=== PATIENT | female | born 1970 | race Caucasian/White ===

== ENCOUNTER 2020-07-24 07:44 | Outpatient (CLI) | payer BC, SELFPAY ==
--- NOTE | ~2020-07-24 | MR_ITS ---
EXAMINATION: MR shoulder LT wo con DATE: 07/24/2020 08:43 INDICATION: Left shoulder pain TECHNIQUE: Magnetic resonance imaging (MRI) of the left shoulder was performed without intravenous co ntrast. Sequences included axial PD-weighted FS FSE, coronal oblique PD-weighted FS FSE, coronal obli que T2-weighted FS FSE, sagittal PD-weighted FS FSE, and sagittal T1-weighted SE. COMPARISON: Radiographs dated 05/10/2020 FINDINGS: Coracoacromial arch: The acromion undersurface is minimally curved in morphology (type I-II) with anterior downsloping. Th e coracoacromial ligament is normal. Minimal acromioclavicular osteoarthritis. Rotator cuff: The supraspinatus, infraspinatus and teres minor tendons are normal. The subscapularis tendon is norm al. Normal rotator cuff muscle bulk and signal. Biceps tendon, glenoid labrum and glenohumeral cartilage: Long head of the biceps tendon is normal. Tear at the 11:00-12:30 position of the superior glenoid la rose. Partial-thickness cartilage loss along the medial aspect of the humeral head and at the glenoid . This is most severe at the central glenoid where it approaches full-thickness with underlying marro w edema and developing mild cystic change. Fluid: Small amount of fluid in the long head biceps tendon sheath which is disproportionate to the physiolo gic amount fluid in the glenohumeral joint space consistent with mild bicipital tenosynovitis. No loo se osteochondral bodies. No abnormal fluid signal in the subacromial/subdeltoid bursa to suggest burs itis. Bones: Bone alignment is normal. No fracture or pathologic marrow replacing process. Mild cystic change at t he greater tuberosity. IMPRESSION: 1. Mild glenohumeral osteoarthritis with regional high-grade chondromalacia in the central glenoid. 2. Tear at the superior glenoid labrum. 3. Mild bicipital tenosynovitis. Reviewed, dictated and finalized at location B.
== END 2020-07-24 07:45 | disposition home or self-care (01) ==
PROVIDERS: PCP Internal Medicine; Visit Provider Nurse Practitioner Family
DX: M25.512 Pain in left shoulder (principal); M19.012 Primary osteoarthritis, left shoulder; S43.432A Superior glenoid labrum lesion of left shoulder, initial encounter; M75.22 Bicipital tendinitis, left shoulder
CPT/HCPCS: 73221

== ENCOUNTER 2021-08-26 05:30 | Emergency (ER) | payer OTHER, SELFPAY ==
--- NOTE | ~2021-08-26 | XR_ITS ---
XR chest 1V portable DATE: 08/26/2021 06:10 INDICATION: Cough, shortness of breath for 4 days. History of COPD. TECHNIQUE: Portable AP chest on 08/26/2021 at 0555 hours COMPARISON: None FINDINGS: Moderate bilateral hyperinflation. No pulmonary infiltrate or consolidation, pleural effusi on or pulmonary vascular congestion or pneumothorax. Heart size is within normal range. No hilar or mediastinal enlargement. IMPRESSION: No active disease Reviewed, dictated and finalized at location A. IMPRESSION: No active disease
[2021-08-26 05:35] VITALS: BP 136/77; PULSE 92; RESP 16; TEMP 36.7; O2SAT 96
[2021-08-26 05:37] VITALS: O2SAT 99
--- NOTE | 2021-08-26 05:43 | ECG_ITS ---
Measurements Intervals [place] Rate: 93 P: 76 OR: 151 QRS: 42 QRSD: 93 T: 49 QT: 342 QTc: 426 Interpretive Statements SINUS RHYTHM INCOMPLETE RIGHT BUNDLE BRANCH BLOCK BASELINE ARTIFACT- I, V3, V6 BORDERLINE ECG Electronically Signed On 08-26-2021 11:25:26 CDT by Rene Soni D.O.
--- NOTE | 2021-08-26 05:49 | ED.SOB ---
HPI - SOB/Dyspnea General Chief Complaint: Shortness of Breath/Dyspnea Stated Complaint: SOB Time Seen by Provider: 08/26/21 05:33 Source: RN notes reviewed History of Present Illness HPI Narrative: Patient presents emergency department from home for shortness of breath. Patient states symptoms began 2 days ago states that she has had progressive shortness of breath worse with exertion states associated with a cough this been productive of yellow sputum patient states she does have COPD and has been wheezing she denies any fevers or chills chest pain abdominal pain nausea vomiting or any other symptoms. States she did have the Covid vaccinations Related Data Home Medications Medication Instructions Recorded Confirmed diclofenac sodium PO 05/10/20 08/02/20 carbidopa 10 mg-levodopa 100 mg 1 tablet PO BID 07/16/20 08/02/20 tablet hydrochlorothiazide 12.5 mg tablet 12.5 mg PO DAILY 07/16/20 08/02/20 Allergies Allergy/AdvReac Type Severity Reaction Status Date / Time Penicillins Allergy Unknown Swelling Verified 08/26/21 05:48 of Lip/Tongue/Throat Review of Systems Review of Systems: Gen.: Denies fevers or chills ENT: Question Respiratory: See HPI CV: Denies chest pain or palpitations GI: Denies abdominal pain nausea, emesis or diarrhea Musculoskeletal: Denies back pain or muscle pain Neuro: Denies numbness, tingling, weakness or focal weakness Skin: Denies rash Except as documented, all other systems reviewed and negative [facility] Past Medical History Medical History Arthritis COPD (chronic obstructive pulmonary disease) DJD of left shoulder Headache Heart attack Hypertension Rotator cuff tendonitis Vision abnormalities Surgical History Surgical History History of appendectomy History of carpal tunnel release Family History Family History Other Arthritis Diabetes mellitus Heart disease Hypertension Malignant neoplasm Social History Social History Smoking status: Former smoker Alcohol intake: never Additional occupation/education comments: [employer] Ex[employer] Narrative: APPEARANCE: No acute distress, nontoxic, resting in bed EYES: EOMI HEENT: Normocephalic, atraumatic, OMM RESPIRATORY: No respiratory distress wheezing the bilateral upper lung wilcox no rhonchi CARDIOVASCULAR: Regular rate and rhythm without murmurs rubs or gallops. ABDOMINAL: Soft, nontender, nondistended, no rebound or guarding MUSCULOSKELETAl: Moves all extremities. No clubbing, cyanosis or edema. NEURO: Awake and alert. Following commands, speech normal, no focal deficits SKIN:: Warm, dry. No rashes lesions or abrasions PSYCHIATRIC: Normal affect/mood, Course Course Emergency Course: Patient given breathing treatment in ED states she is feeling much better this time repeat lung exam clear to auscultation bilaterally Discussed with patient results of workup and diagnosis. Discussed need for follow-up with primary care, proper use of medication, and reasons to return to the emergency department. Patient understands and agrees to current treatment plan patient states she does have an albuterol inhaler at home Vital Signs Vital signs: Vital Signs Temperature 98.1 F 08/26/21 05:35 Pulse Rate 92 08/26/21 05:35 Respiratory Rate 16 08/26/21 05:35 Pulse Oximetry 96 08/26/21 05:35 Temperature 98.1 F 08/26/21 05:35 Pulse Rate 82 08/26/21 06:06 Respiratory Rate 20 08/26/21 06:06 Pulse Oximetry 99 08/26/21 05:37 MDM - SOB/Dyspnea Lab Data Result diagrams: 08/26/21 05:53 08/26/21 05:53 Labs: Lab Results 08/26/21 08/26/21 Range/Units 05:53 05:53 WBC 7.1 (4.5-10.0) K/mm3 RBC 4.37 (4.2-5.4) M/mm3 Hgb 13.7 (12.0-15.0) g/dL
[2021-08-26] MEDS: methylPREDNISolone SOD SUCC 125 MG VIAL IV PUSH (05:54)
[2021-08-26] MEDS: ALBUTEROL SULFATE NEB 2.5 MG/0.5 ML INH 5 MG INHALATION (05:58)
[2021-08-26 05:59] LABS: Basophils Absolute Auto 0.1 K/mm3 (0.0-0.1); Basophils Percent Auto 0.7 % (0.2-1.2); Eosinophils Absolute Auto 0.3 K/mm3 (0-0.3); Eosinophils Percent Auto 4.8 % (0-4.4); Hematocrit 40.9 % (37.0-47.0); Hemoglobin 13.7 g/dL (12.0-15.0); Immature Granulocyte Absolute 0.02 K/mm3 (0.00-0.031); Immature Granulocyte Percent A 0.3 % (0-0.5); Lymphocytes Absolute Auto 2.17 K/mm3 (0.9-3.2); Lymphocytes Percent Auto 30.6 % (18.3-44.2); Mean Corpuscular HGB Conc 33.5 g/dl (32-36); Mean Corpuscular Hemoglobin 31.4 pg (26-34); Mean Corpuscular Volume 93.6 fl (80-100); Mean Platelet Volume 10.3 fl (7.4-10.4); Monocytes Absolute Auto 0.5 K/mm3 (0.1-0.6); Monocytes Percent Auto 7.2 % (2.6-8.5); Neutrophils Percent Auto 56.4 % (45.5-73.1); Platelet Count Result 271 k/mm3 (150-375); Red Blood Count 4.37 M/mm3 (4.2-5.4); Red Cell Distribution Width 13.2 % (11.5-14.5); White Blood Count 7.1 K/mm3 (4.5-10.0)
[2021-08-26] MEDS: IPRATROPIUM BR 0.02% INH SOLN 0.5 MG/2.5 ML VIAL INHALATION (05:59)
[2021-08-26 06:01] VITALS: PULSE 83; RESP 24
[2021-08-26 06:06] VITALS: PULSE 82; RESP 20
[2021-08-26 06:09] LABS: Anion Gap 10 mmol/L (8-16); Blood Urea Nitrogen 15 mg/dL (7-17); Calcium 9.4 mg/dL (8.4-10.2); Carbon Dioxide 25 mmol/L (22-30); Chloride 106 mmol/L (98-107); Estimated CRCL calculation 79 ml/min; Estimated Glomerular Filt Rate > 60; Glucose 114 mg/dL (65-110); Potassium 3.7 mmol/L (3.4-5.0); Sodium 141 mmol/L (137-145)
[2021-08-26 07:04] VITALS: BP 134/72; PULSE 77; RESP 18; O2SAT 100
== END 2021-08-26 07:05 | disposition home or self-care (01) ==
PROVIDERS: Emergency Provider Emergency Medicine; PCP Internal Medicine
DX: J44.1 Chronic obstructive pulmonary disease with (acute) exacerbation (principal); M19.90 Unspecified osteoarthritis, unspecified site; I25.2 Old myocardial infarction; I10 Essential (primary) hypertension; Z87.891 Personal history of nicotine dependence; I45.10 Unspecified right bundle-branch block
CPT/HCPCS: 36415; 71045; 80048; 85025; 93005; 94640; 96374; 99284; J2930

== ENCOUNTER 2024-03-29 13:17 | Outpatient (CLI) | payer BC, SELFPAY ==
--- NOTE | ~2024-03-29 | PE_ITS ---
EXAMINATION: PET skull to mid thigh DATE: 03/29/2024 15:24 INDICATION: Solitary pulmonary nodule. TECHNIQUE: Blood glucose level was 102 mg/dL. 11.209 mCi of 18-fluorodeoxyglucose (18-FDG) was admini stered i.v. Low dose computed tomography (CT) images were acquired from the base of the brain to the proximal thighs for attenuation correction and anatomic localization. Automated exposure control was employed. Dose-length product (DLP) was 1248 mGy-cm. Positron emission tomography (PET) images were a cquired in the same distribution. COMPARISON: Chest single view 08/26/2021 FINDINGS: Head/neck: There are no pathologically enlarged lymph nodes. Chest: There is an 11 mm nodule in right upper lobe with maximum SUV of 6.3. There is mild emphysema. There are 6 mm and 5 mm nodules in left upper lobe without increased activity. No pleural effusion. The heart size is normal. No pericardial effusion. There are no pathologically enlarged lymph nodes. Abdomen/pelvis/proximal thighs: There is diffuse hepatic steatosis. The gallbladder, spleen, pancreas , and right adrenal gland are normal. There is a 12 mm mass in left adrenal gland measuring low atten uation, consistent with an adenoma. The adrenal glands are normal. There are changes of appendectomy. There are no pathologically enlarged lymph nodes. There is no free intraperitoneal fluid. There is n o osseous malignancy. IMPRESSION: 1. 12 mm nodule in right lung upper lobe with maximum SUV of 6.3, consistent with primary bronchogeni c carcinoma. CT-guided biopsy is recommended. 2. 6 mm and 5 mm nodules without increased activity in left lung upper lobe, probably benign. Reviewed, dictated and finalized at location A. IMPRESSION: 1. 12 mm nodule in right lung upper lobe with maximum SUV of 6.3, consistent wi th primary bronchogenic carcinoma. CT-guided biopsy is recommended. 2. 6 mm and 5 mm nodules without increased activity in left lung upper lobe, pr obably benign.
[2024-03-30 06:29] LABS: Glucose Point of Care 102 mg/dl (65-105)
== END 2024-03-29 13:18 | disposition home or self-care (01) ==
LOC: ANHIMG 13:17
PROVIDERS: PCP Internal Medicine; Visit Provider Internal Medicine Pulmonary Disease
DX: R91.8 Other nonspecific abnormal finding of lung field (principal)
CPT/HCPCS: 78815; A9552

== ENCOUNTER 2024-04-20 08:50 | Outpatient (CLI) | payer BC, SELFPAY ==
[2024-04-11 13:51] VITALS: BMI 36.8
--- NOTE | 2024-04-11 13:53 | PC.NURSE ---
Pre Radiology instructions Report to the outpatient [facility] on date _[id number]_ at time _0900_ for procedure Time: _1100_ YOU MAY BE MONITORED AT HOSPITAL FOR UP TO 4 HOURS AFTER YOUR PROCEDURE. A visitor will be allowed to accompany the patient into the hospital. You and your visitor will be asked to self-screen and do not enter if you have any COVID symptoms. A mask is OPTIONAL within the hospital. Patients are to have no food or drink 6 hours prior to procedure time Driving will be restricted after the procedure, you must have a person to drive you home. Labs will be drawn in preop area and once reviewed, you will be taken to radiology area for procedure. When the procedure is completed, you will be taken to outpatient where you will be monitored for several hours. You may have one visitor in this area. Other than holding anti-coagulants, patient may take other medication(s) as scheduled. Prior to your appointment date patients are instructed to hold anti-coagulants after discussing with ordering provider to stop. If unable to discontinue anti-coagulants please notify radiologist. ? No aspirin or warfarin (Coumadin) for 7 days prior to the procedure. ? No clopidogrel (Plavix), ticagrelor (Brilinta), prasugrel (Effient) or dabigatran (Pradaxa) for 5 days prior to the procedure. ? No rivaroxaban (Xarelto), apixaban (Eliquis), dipyridamole (Aggrenox or Persantine) or cilostazol (Pletal) for 2 days prior to the procedure. Medications to discontinue per physician: Date to take last dose: Please leave all valuables, including medications, at home the day of procedure. The hospital will not accept responsibility for valuables. Wear comfortable, loose fitting clothing.? Follow any additional instructions given to you from ordering provider. Telephone instructions given to __Dolores____and asked if any additional questions and then verbalized understanding. Patient advised to call scheduling provider office or registration scheduling [phone] if any additional questions.
[2024-04-20] VITALS (9 sets, daily range): BP systolic 91–125; BP diastolic 54–76; PULSE 57–80; RESP 14–16; TEMP 36.3; O2SAT 96–100; BMI 35.9
--- NOTE | ~2024-04-20 | XR_ITS ---
EXAMINATION: XR chest 1V 04/20/2024 11:23 INDICATION: Post image guided biopsy. PROCEDURE: AP view of the chest COMPARISON: CT dated 04/20/2024 FINDINGS: There is focal irregular nodular density right apex. Heart size normal. The cardiomediastin al silhouette is within normal limits. There are no pleural effusions. There is no pneumothorax danny pected. IMPRESSION: 1: No pneumothorax identified post procedure. 2: Irregular shaped nodular density right apex, suspicious for bronchogenic carcinoma.. Reviewed, dictated and finalized at location B. IMPRESSION: 1: No pneumothorax identified post procedure. 2: Irregular shaped nodular density right apex, suspicious for bronchogenic car cinoma..
--- NOTE | ~2024-04-20 | XR_ITS ---
EXAMINATION: XR chest 1V portable DATE: 04/20/2024 14:36 INDICATION: Right lung nodule status post percutaneous biopsy. TECHNIQUE: A single frontal view of the chest was obtained. COMPARISON: Chest single view at 12:15 PM FINDINGS: There is a nodule in right lung upper lobe. No pleural effusion or pneumothorax. The heart size is normal. IMPRESSION: 1. Nodule in right lung upper lobe suspicious for primary bronchogenic carcinoma. Reviewed, dictated and finalized at location A. IMPRESSION: 1. Nodule in right lung upper lobe suspicious for primary bronchogenic carcinom a.
--- NOTE | ~2024-04-20 | XR_ITS ---
EXAMINATION: XR chest 1V portable DATE: 04/20/2024 12:25 INDICATION: Right lung nodule status post percutaneous biopsy. TECHNIQUE: A single frontal view of the chest was obtained. COMPARISON: Chest single view at 11:19 AM FINDINGS: There is a nodule in right lung upper lobe. No pleural effusion or pneumothorax. The heart size is normal. IMPRESSION: 1. Nodule in right lung upper lobe suspicious for primary bronchogenic carcinoma. Reviewed, dictated and finalized at location A. IMPRESSION: 1. Nodule in right lung upper lobe suspicious for primary bronchogenic carcinom a.
--- NOTE | ~2024-04-20 | CT_ITS ---
EXAMINATION: CT biopsy lung w/imaging DATE: 04/20/2024 11:22 INDICATION: Right lung nodule. TECHNIQUE: The procedure including the risks, benefits, and alternatives and possibility of chest tub e placement were discussed with the patient. Risks discussed included infection, hemorrhage, approxim ately 1/3 risk of pneumothorax, approximately 1/10 risk of pneumothorax severe enough to warrant ches t tube placement, and rarely . The patient understood the risks and agreed to proceed. The patie nt was placed prone. The skin overlying the right lung was prepped and draped in sterile fashion. A nesthetic was administered with 1% lidocaine subcutaneously. A 19 gauge outer needle was advanced un kj CT guidance to the lesion of interest. A 20 gauge core biopsy needle was then used to obtain 4 co re biopsy specimens. The needle was removed and the entry site was cleaned and dressed. The mA was ad justed according to patient size. Iterative reconstruction technique was employed. The dose-length pr oduct was 139.53 mGy-cm. There were no immediate complications. FINDINGS: CT images demonstrate the outer needle tip adjacent to a 12 mm nodule in right lung upper l obe. IMPRESSION: 1. CT-guided core needle biopsy of a right lung upper lobe nodule. Reviewed, dictated and finalized at location A.
[2024-04-20 10:08] LABS: Basophils Percent Auto 0.4 % (0.2-1.2); Eosinophils Absolute Auto 0.2 K/mm3 (0-0.3); Eosinophils Percent Auto 2.1 % (0-4.4); Hematocrit 41.4 % (37.0-47.0); Hemoglobin 14.1 g/dL (12.0-15.0); Immature Granulocyte Absolute 0.01 K/mm3 (0.00-0.031); Immature Granulocyte Percent A 0.1 % (0-0.5); Lymphocytes Absolute Auto 2.56 K/mm3 (0.9-3.2); Lymphocytes Percent Auto 35.4 % (18.3-44.2); Mean Corpuscular HGB Conc 34.1 g/dl (32-36); Mean Corpuscular Hemoglobin 31.3 pg (26-34); Mean Corpuscular Volume 91.8 fl (80-100); Mean Platelet Volume 9.9 fl (7.4-10.4); Monocytes Absolute Auto 0.6 K/mm3 (0.1-0.6); Neutrophils Absolute Auto 3.9 K/mm3 (1.3-6.7); Platelet Count Result 272 k/mm3 (150-375); Prothrombin Time 13.2 Seconds (11.1-14.7); Red Blood Count 4.51 M/mm3 (4.2-5.4); Red Cell Distribution Width 13.1 % (11.5-14.5); White Blood Count 7.2 K/mm3 (4.5-10.0)
--- NOTE | 2024-04-20 15:00 | SUR.PHASEII ---
PER DR FISHER XRAY LOOKS GOOD AND PATIENT IS OKAY TO DISCHARGE
== END 2024-04-20 15:05 | disposition home or self-care (01) ==
PROVIDERS: PCP Internal Medicine; Referring Provider Internal Medicine Pulmonary Disease; Visit Provider Radiology Diagnostic Radiology
PROC: BB24ZZZ Computerized Tomography (CT Scan) of Bilateral Lungs (ICD-10-PCS; CPT 32408; principal; 2024-04-20 11:00)
DX: C34.11 Malignant neoplasm of upper lobe, right bronchus or lung (principal)
CPT/HCPCS: 32408; 36415; 71045; 85025; 85610; 88305; 88342

== ENCOUNTER 2024-07-20 12:49 | Outpatient (CLI) | payer BC, SELFPAY ==
--- NOTE | ~2024-07-20 | CT_ITS ---
Clinical Indication: Lung cancer CT Scan of the Chest with Contrast: Technique: Contiguous sections were acquired throughout the chest after intravenous administration of 100 cc of Omnipaque 350. Dose reduction technique was used on this scan by utilizing automated expos ure control and iterative reconstruction technique. The dose-length product (DLP) was 562.77 mGy-cm. COMPARISON: 03/29/2024 Findings: There is no evidence of any significant mediastinal, hilar or axillary lymphadenopathy. There is no f illing defect in the pulmonary arterial tree to suggest pulmonary embolus. There is no evidence of ao rtic dissection or aneurysm. There is no evidence of pleural or pericardial effusion. Status post interval wedge resection of the right upper lobe/right lung apex with associated suture l ine present. Stable groundglass nodules at the left lung apex.. Images through the upper abdomen reveal no abnormalities. Impression: No evidence of active malignancy or metastatic disease. Status post wedge resection of the right lung apex. Stable groundglass nodules at the left lung apex. Reviewed, dictated and finalized at location . Impression: No evidence of active malignancy or metastatic disease. Status post wedge resec tion of the right lung apex. Stable groundglass nodules at the left lung apex.
[2024-07-20 13:06] LABS: Estimated Glomerular Filt Rate 52
== END 2024-07-20 12:50 | disposition home or self-care (01) ==
LOC: ANHIMG 12:51
PROVIDERS: PCP Internal Medicine; Visit Provider Internal Medicine Hematology & Oncology
DX: C34.91 Malignant neoplasm of unspecified part of right bronchus or lung (principal); R91.8 Other nonspecific abnormal finding of lung field; E27.8 Other specified disorders of adrenal gland
CPT/HCPCS: 71260; Q9967